=== PATIENT | female | born 1965 | race Hispanic/Latino ===

== ENCOUNTER 2017-10-06 05:57 | Day surgery (SDC) | payer BC ==
[2017-10-02 09:49] LABS: Basophils % (Auto) 0.9 % (0.0-1.8); Eosinophils % (Auto) 2.3 % (0.0-4.3); Hematocrit 46.3 % (30.3-42.9); Hemoglobin 15.5 gm/dl (10.1-14.3); Mean Corpuscular HGB Conc 34 % (30-34); Mean Corpuscular Hemoglobin 28 pg (28-32); Mean Corpuscular Volume 85 fl (79-97); Platelet Count 240 K/mm3 (140-440); Red Blood Count 5.46 M/mm3 (3.65-5.03); Red Cell Distribution Width 13.1 % (13.2-15.2); White Blood Count 7.7 K/mm3 (4.5-11.0)
[2017-10-02 10:00] LABS: INR 0.86 (0.87-1.13); Partial Thromboplastin Time 26.7 Sec. (24.2-36.6)
--- NOTE | 2017-10-02 10:03 | Anesthesia Consultation ---
Anesthesia Consult and Med Hx Date of service: 10/02/17 - Airway Anesthetic Teeth Evaluation: Good ROM Head & Neck: Adequate Mental/Hyoid Distance: Adequate Mallampati Class: Class II Intubation Access Assessment: Probably Good - Pre-Operative Health Status ASA Pre-Surgery Classification: ASA3 Proposed Anesthetic Plan: General, MAC - Pulmonary Hx Smoking: No Hx Asthma: Yes (NO [place]) Hx Sleep Apnea: No (CARLOS PRE SCREEN HIGH RISK.) - Cardiovascular System Hx Hypertension: No - Central Nervous System Hx Back Pain: Yes (CHRONIC BACK PAIN WITH ELYSE LEGS/FEET PAIN) Hx Psychiatric Problems: Yes (anxiety) - Endocrine Hx Insulin Dependent Diabetes: Yes - Other Systems Hx Cancer: No Hx Obesity: Yes (BMI 39.2)
[2017-10-02 10:04] LABS: Alanine Aminotransferase 13 units/L (7-56); Albumin 3.7 g/dL (3.9-5); Alkaline Phosphatase 57 units/L (35-129); Anion Gap 18 mmol/L; BUN/Creatinine Ratio 25; Blood Urea Nitrogen 10 mg/dL (7-17); Carbon Dioxide 26 mmol/L (22-30); Chloride 96.5 mmol/L (98-107); Glucose 287 mg/dL (65-100); Sodium 136 mmol/L (137-145); Total Protein 7.4 g/dL (6.3-8.2)
[2017-10-06] MEDS ORDERED: ANCEF/STERILE WATER 2 GM/20 ML IV NR (06:00)
[2017-10-06] MEDS ORDERED: NACL BACTERIOSTATIC INFILTRATI ONE (06:31)
[2017-10-06] MEDS ORDERED: PEPCID IV NR (07:00)
[2017-10-06] MEDS ORDERED: VERSED IV NR (07:00)
[2017-10-06] MEDS ORDERED: NACL 0.9% 1000 ML 1,000 ML IV SCH (07:00)
[2017-10-06] MEDS ORDERED: MARCAINE 0.5% 30 ML INFILTRATI ONE (07:16)
[2017-10-06] MEDS ORDERED: NACL P/F VIAL (10 ML) 10 ML ONE (07:16)
[2017-10-06] MEDS ORDERED: BACITRACIN ONE (07:17)
[2017-10-06] MEDS ORDERED: GELFOAM TP ONE (07:17)
[2017-10-06] MEDS ORDERED: THROMBIN (BOVINE) TP ONE (07:17)
[2017-10-06] MEDS ORDERED: MORPHINE IV PRN (07:20)
--- NOTE | 2017-10-06 07:21 | Anesthesia Day of Surgery ---
Anesthesia Day of Surgery - Day of Surgery Patient Examined: Yes Patient is NPO: Yes
[2017-10-06] MEDS ORDERED: QUELICIN ONE (07:26)
[2017-10-06] MEDS ORDERED: DIPRIVAN 10 MG/ML IV ONE (07:27)
[2017-10-06] MEDS ORDERED: XYLOCAINE MPF 2% ONE (07:29)
[2017-10-06] MEDS ORDERED: DILAUDID ONE (07:30)
[2017-10-06] MEDS ORDERED: XYLOCAINE 0.5%/ EPI 1:200,000 INFILTRATI ONE (07:32)
--- NOTE | 2017-10-06 07:51 | Short Stay Summary ---
Short Stay Documentation Date of service: 10/06/17 Narrative H&P: See atteched office H & P. 52 year old diabetic female with chronic low back pain and bilateral lower extremity pain. no hisotory of prior surgery. - History Past Medical History: diabetes Past Surgical History: No surgical history Social history: , lives with family - Allergies and Medications Current Medications: Allergies No Known Allergies Allergy (Verified 09/28/17 14:52) Home Medications Medication Instructions Recorded Confirmed Last Taken Type ALPRAZolam [Xanax] 1 mg PO PRN PRN 09/28/17 09/28/17 10/05/17 History Gabapentin [Neurontin] 300 mg PO PRN PRN 09/28/17 09/28/17 10/05/17 History HYDROcodone/APAP 10-325 [[place] 1 each PO Q6HR PRN 09/28/17 09/28/17 10/05/17 History 10/325] Insulin NPH/Regular [Novolin 70/30] 90 unit SUB-Q BID 09/28/17 09/28/17 History Tapentadol [Nucynta] 50 mg PO BID 09/28/17 09/28/17 10/05/17 History Active Medications Cefazolin Sodium (Ancef/Sterile Water 2 Gm/20 Ml) 2 gm IV PREOP NR Stop: 10/06/17 23:59 Famotidine (Pepcid) 20 mg IV PREOP NR Stop: 10/06/17 21:00 Last Admin: 10/06/17 07:24 Dose: 20 mg Sodium Chloride (Nacl 0.9% 1000 Ml) 1,000 mls @ 100 mls/hr IV DIRECT SHAKILA Last Admin: 10/06/17 06:35 Dose: 100 mls/hr Insulin Human Regular (Novolin R) 8 units IV ONCE NR Stop: 10/06/17 10:00 Last Admin: 10/06/17 07:20 Dose: 8 units Midazolam HCl (Versed) 2 mg IV PREOP NR Stop: 10/06/17 23:59 Last Admin: 10/06/17 07:23 Dose: 2 mg Morphine Sulfate (Morphine) 2 mg IV Q10MIN PRN PRN Reason: Pain, Moderate (4-6) Stop: 10/06/17 18:00 Morphine Sulfate (Morphine) 4 mg IV Q10MIN PRN PRN Reason: Pain , Severe (7-10) Stop: 10/06/17 18:00 - Physical exam General appearance: no acute distress Integumentary: no rash HEENT: Atraumatic, PERRLA, EOMI, Mucous membr. moist/pink Lungs: Clear to auscultation Breasts: deferred Heart: Regular rate, Normal S1, Normal S2, No murmurs Gastrointestinal: normal Female Genitourinary: deferred Rectal Exam: deferred Extremities: no ischemia, pulses intact Neurological: Normal gait, Strength at 5/5 X4 ext, Sensation intact, Cranial nerves 3-12 NL - Brief post op/procedure progress note Date of procedure: 10/06/17 Pre-op diagnosis: Chronic Back Pain with Chronic Bilateral Lower Extremity Radiculopathy Post-op diagnosis: same Procedure: Permanent Neurostimulator Implantation with Dual Epidural Leads Anesthesia: TORO Surgeon: ESTHELA AGUILAR Estimated blood loss: minimal Pathology: none - Disposition Disposition: - TO HOME OR SELFCARE Short Stay Discharge Plan Follow up with: XIANG BECK [Other] - 7 Days
[2017-10-06] MEDS ORDERED: ZOFRAN ONE (08:33)
[2017-10-06] MEDS ORDERED: NEO SYNEPHRINE/NS Syringe(OR USE) IV ONE (08:38)
[2017-10-06] MEDS ORDERED: NACL 0.9% 1000 ML 1,000 ML ONE (08:39)
[2017-10-06] MEDS ORDERED: MARCAINE 0.5% INFILTRATI ONE (08:45)
[2017-10-06] MEDS ORDERED: BACITRACIN IR ONE (08:45)
[2017-10-06] MEDS ORDERED: NACL 0.9% 1000 ML IR ONE (08:45)
[2017-10-06] MEDS ORDERED: NACL P/F VIAL (10 ML) INFILTRATI ONE (09:18)
[2017-10-06] MEDS ORDERED: ANTIBIOTIC OINT TP ONE ×2 (10:32→10:33)
[2017-10-06] MEDS: MORPHINE IV PRN ×2 (11:30→11:45)
--- NOTE | 2017-10-06 11:30 | Post Anesthesia Evaluation ---
- Post Anesthesia Evaluation Patient Participated: Yes Airway Patent: Yes Stable Respiratory Function: Yes Nausea/Vomiting: No Temp > 96.8F: Yes Pain Manageable: Yes Adequeate Hydration: Yes Anesthesia Complications: No Block Receding Appropriately: Not Applicable Patient on Ventilator: No
--- NOTE | 2017-10-06 12:27 | Operative Report ---
Operative Report Operative Report: Preoperative Diagnoses: 1. Chronic axial low back pain. 2. Bilateral Lumbar radiculopathy. 3. Degenerative disc disease the lumbar spine. Postoperative diagnosis: 1. Same. Procedure: 1. Percutaneous insertion of dual octapolar epidural leads -thoracic spine. 2. Implantation of pulse generator/vault clerk. 3. Post operative programming of implanted neurostimulator -30 minutes. Surgeon: Maulik Lopez Anesthesia: General endotracheal. Estimated blood loss: 15 mL Complications: None. Indication: The patient is a 52-year-old female with insulin-dependent pelvis and obesity. She has a history of chronic axial low back pain secondary to degenerative disc disease and lumbar spondylosis as well as bilateral lower extremity radiculopathy. She has undergone extensive conservative management including chronic opioid therapy. She was evaluated by neurosurgery and found to be a poor candidate for open surgical procedures. She underwent neurostimulator trial with greater than 75% pain relief and reduction in opioid intake. Based on the success of the trial, she was felt to be an excellent candidate for neurostimulator implantation. Patient underwent psychological evaluation and no contraindication was identified. She now presents for permanent implantation. Procedure: Upon informed consent, the patient was brought to the operative suite and period general endotracheal anesthesia was induced. The patient was then carefully turned onto the operative table in the prone position. All pressure points were meticulously padded. She received 2 g of cefazolin intravenously for antibiotic prophylaxis. The back was sterilely prepped and draped in routine fashion. Attention was initially turned to the thoracolumbar junction. Using a 14-gauge Tuohy needle, the needle was advanced to the interlaminar space on the left at T12-L1. The epidural space was entered using [id number] technique. Aspiration was negative for blood and CSF. Guidewire was easily passed into the dorsal epidural space. This was followed by placement of a 60 cm octapolar lead ([employer], [id number]) which was guided using fluoroscopic assistance into the lower thoracic space to the left of midline with the superior contact overlying the T7-8 disc space. Using parallel technique, the second epidural lead was advanced into the posterior epidural space at T12-L1 and a second 60 cm octapolar lead ([employer] [id number]), and advanced to the T7-8 disc space, to the right of midline. Once placement was deemed to be satisfactory in both AP and lateral projections , a 5 cm paramedian skin incision was made with a #15 blade after installation of 0.5% bupivacaine. Using sharp and blunt dissection was electrocautery, the dorsal lumbar fascia was identified. The fat tissue connective tissue was stripped off the dorsal fascia. The Tuohy needles were removed and Villarreal-Lock anchors were used to anchor the leads to the dorsal epidural fascia with 2-0 silk sutures. The leads were locked into the anchors and the leads appear to be secure. Lead position was again confirmed with fluoroscopy. The incision was irrigated with bacitracin-containing solution. Second 5 cm incision was made a #15 blade over the left flank, superior to the iliac crest. Using sharp and blunt dissection, a pocket was created within the subcutaneous fat. Hemostasis was achieved with electrocautery. The pocket was irrigated in no active bleeding was identified. The tunneling device was then inserted and the leads were passed from the paramedian incision to the pocket and connected to the IPG ([employer] SN [id number]). Impedance was found to be satisfactory. The pulse generator was then placed into the pocket satisfactory fit. The wound was again irrigated with antibiotic containing solution. Both incisions were closed in 3 layers with deep 0 Vicryl interrupted sutures, subcutaneous 3-0 Vicryl interrupted sutures and skin edges were approximated with stainless steel gloria. Sterile dressings were applied. Patient was then turned onto the gurney in the supine position and extubated. She was taken to the recovery room where she was noted to be in stable cardiopulmonary neurologic condition. In the recovery room 30 minutes were spent programming the neurostimulator system. The pulse generator/vault clerk was activated and programmed including frequency, pulse width, pulse amplitude and pulse duration. Impedance was get down to be satisfactory. Patient was provided with 3 programs for initial use. Disposition: Patient was discharged to home in good condition. Follow up with home health care. Prescription was given for Keflex 500 mg twice a day for 5 days. Follow-up: Return to clinic in one week for follow-up evaluation.
[2017-10-06 14:49] VITALS: BP 135/87
--- NOTE | 2017-10-06 15:57 | XRay Report ---
THORACIC SPINE RADIOGRAPHS INDICATION: Radiculopathy. Dorsal spinal column stimulator insertion. COMPARISON: None similar at this institution. FINDINGS: AP and crosstable lateral intraoperative fluoroscopic views centered about the lower thoracic spine demonstrate 2 stimulator leads with their radiopaque ends with markers positioned behind labeled T8 and T9 vertebrae. Possible cholecystectomy clips. CONCLUSION: Intraoperative fluoroscopic assistance provided for thoracic spine stimulator placement, as described. Thank you for the opportunity to participate in this patient's care.
== END 2017-10-06 13:40 | disposition home or self-care (01) ==
LOC: OR 05:57
PROVIDERS: ATTEND Radiology Diagnostic Radiology
DX: M51.16 Intervertebral disc disorders with radiculopathy, lumbar region (principal); G89.29 Other chronic pain; E11.9 Type 2 diabetes mellitus without complications; J45.909 Unspecified asthma, uncomplicated; E66.9 Obesity, unspecified; F41.9 Anxiety disorder, unspecified; Z68.39 Body mass index [BMI] 39.0-39.9, adult; Z79.4 Long term (current) use of insulin; Z79.899 Other long term (current) drug therapy; Z79.01 Long term (current) use of anticoagulants
CPT/HCPCS: 36415; 63650; 63685; 72070; 80053; 82962; 85025; 85610; 85730; 93005; 93010; C1778; J0330; J0690; J1170; J2250; J2270; J2370; J2405; J2704; J7030; A4649; J1815